=== PATIENT | male | born 1945 | race Caucasian/White ===

== ENCOUNTER → 2017-07-23 | Outpatient (CLI) | payer MEDICARE, OTHER ==
[~2017-07-23] MED LIST: ABILIFY DIS15 MG/TAB GT; ABILIFY GT; ABILIFY2 MG GT; ACID REDUCER20 MG PO; ADULT TUSS100 MG/5 M PEG; AMLODIPINE BESYL5 MG PO; ATIVAN PO; ATIVAN0.5 M1 PO; AVEENO LOTION TOP; BISACODYL10 MG/SUPP PR; CALCIUM 5001 TAB PO; CALCIUM CARBON500 MG GT; CALCIUM1 TAB.CHEW PO; CENTRUM GT; CENTRUM PO; CENTRUM240 ML GT; CLARITIN10 MG GT; CLOBETASOL 0.0560 GM; DEPAKOTE SPRIN125 MG GT; FAMOTIDINE20 M1 PO; FAMOTIDINE20 MG GT; FAST RELIEF LAX10 MG RC; FORTEO750 MCG/3 INJ; GAS RELIEF; GAS RELIEF40 MG/0.6 PO; GENTLE LAXATIVE10 MG PR; HALDOL GT; HALOPERIDOL0.5 MG GT; LAC-HYDRIN225 GM TOP; LACTULOSE10 G/15 ML GT; LAMICTAL GT; LAMICTAL PO; LAMICTAL25 M1 DOB; LAMICTAL25 MG GT; LAMOTRIGINE150 MG GT; LAXATIVE5 M1 GT; LORAZEPAM1 MG GT; MAALOX SUSPENS355 ML PO; MAALOX SUSPENSI30 ML GT; MIRALAX17 GM GT; MIRALAX17 GM PO; MIRALAX255 GM GT; MULTI VITAMIN1 EACH PO; MYLANTA DO150 ML SUS; MYLANTA LIQ355 ML GT; MYLICON40 MG/0.6 GT; NASALIDE INHALE25 ML; NASALIDE25 ML; NASAREL29 MCG; NORVASC PO; OYSTER CALCIUM500 MG GT; PEG 3350-GRX250 GM GT; PREVACID GT; PROSCAR5 MG GT; PROSCAR5 MG PO; QUESTRAN PACK4 G/PKT GT; REMERON GT; TOPAMAX GT; TYLENOL325 M1 PO; VALPROIC ACID; VASOTEC GT; VITAMIN D1000 UNI1 PO; VITAMIN D2000 UNI1 GT; VITAMIN D2000 UNIT PO; ZETIA PO; ZYRTEC10 M2 PO
== END | disposition home or self-care (01) ==
LOC: CSSDAY 07-16 10:00
DX: M81.0 Age-related osteoporosis without current pathological fracture (principal)
CPT/HCPCS: 96372; J0897